=== PATIENT | female | born 1950 | race Caucasian/White ===

== ENCOUNTER 2018-04-20 09:58 | Outpatient (CLI) | payer MEDICARE, OTHER ==
--- NOTE | 2018-04-20 12:23 | BD ---
BONE DENSITOMETRY USING DEXA: Date: 04/20/18 HISTORY: Postmenopausal screening for osteoporosis. FINDINGS: Lumbar Spine: BMD (g/cm2) L1 0.811 T-Score: -1.6 Z-Score: 0.1 L2 0.829 T-Score: -1.8 Z-Score: 0.2 L3 0.860 T-Score: -2.0 Z-Score: 0.0 L4 0.845 T-Score: -2.0 Z-Score: 0.2 L1-L4 0.837 T-Score: -1.9 Z-Score: 0.1 Femoral Neck: 0.833 T-Score: -0.1 Z-Score: 1.6 Total Femur: 0.960 T-Score: 0.1 Z-Score: 1.6 The 10 year fracture risk for a major osteoporotic fracture is 7% and for a hip fracture is 0.3%. IMPRESSION: Osteopenia. POS: BRENDAN
== END 2018-04-20 09:59 | disposition home or self-care (01) ==
LOC: BICMAMMO 09:58
PROVIDERS: ATTEND Family Medicine
DX: Z12.31 Encounter for screening mammogram for malignant neoplasm of breast (principal); M85.88 Other specified disorders of bone density and structure, other site
CPT/HCPCS: 77063; 77067; 77080

== ENCOUNTER 2019-04-27 09:26 | Outpatient (CLI) | payer MEDICARE, OTHER ==
--- NOTE | 2019-04-27 11:24 | MMO ---
Bilateral MAMMO Bilat Screen [facility]. CLINICAL HISTORY: Patient is 68 years old and is seen for screening. The patient has no family history of breast cancer. The patient has no personal history of cancer. VIEWS: The views performed were: bilateral craniocaudal with tomosynthesis and bilateral mediolateral oblique with tomosynthesis. FILMS COMPARED: The present examination has been compared to prior imaging studies performed at [facility] on 08/14/2015 and 04/20/2018, and at [facility] on 09/01/2014 and 09/06/2014. This study has been interpreted with the assistance of computer-aided detection. MAMMOGRAM FINDINGS: The breasts are heterogeneously dense, which could obscure a lesion on mammography. There are no suspicious masses, suspicious calcifications, or new areas of architectural distortion. IMPRESSION: THERE IS NO MAMMOGRAPHIC EVIDENCE OF MALIGNANCY. A ROUTINE FOLLOW-UP MAMMOGRAM IN 1 YEAR IS RECOMMENDED. THE RESULTS OF THIS EXAM WERE SENT TO THE PATIENT. ACR BI-RADS Category 1 - Negative MAMMOGRAPHY NOTE: 1. A negative mammogram report should not delay a biopsy if a dominant of clinically suspicious mass is present. 2. Approximately 10% to 15% of breast cancers are not detected by mammography. 3. Adenosis and dense breasts may obscure an underlying neoplasm. Reported by: ISHAN CHRISTIANSON MD Electonically Signed: [id number]
== END 2019-04-27 09:27 | disposition home or self-care (01) ==
LOC: BICMAMMO 09:26
PROVIDERS: ATTEND Family Medicine
DX: Z12.31 Encounter for screening mammogram for malignant neoplasm of breast (principal)
CPT/HCPCS: 77063; 77067

== ENCOUNTER 2020-05-31 09:07 | Outpatient (CLI) | payer MEDICARE, OTHER ==
--- NOTE | 2020-05-31 10:05 | MMO ---
Bilateral MAMMO Bilat Screen [facility]. CLINICAL HISTORY: Patient is 69 years old and is seen for screening. The patient has no family history of breast cancer. The patient has no personal history of cancer. VIEWS: The views performed were: bilateral craniocaudal with tomosynthesis and bilateral mediolateral oblique with tomosynthesis. FILMS COMPARED: The present examination has been compared to prior imaging studies performed at [facility] on 08/14/2015, 04/20/2018 and 04/27/2019, and at [facility] on 09/06/2014. This study has been interpreted with the assistance of computer-aided detection. MAMMOGRAM FINDINGS: The breasts are heterogeneously dense, which could obscure a lesion on mammography. There is an asymmetry seen in the CC view only seen in the outer region of the left breast. In the right breast, there are no suspicious masses, calcifications or areas of architectural distortion. IMPRESSION: ASYMMETRY IN THE LEFT BREAST REQUIRES ADDITIONAL EVALUATION. RECOMMEND DIAGNOSTIC MAMMOGRAM. ULTRASOUND MAY ALSO PROVE USEFUL AT RECALL. THE RESULTS OF THIS EXAM WERE SENT TO THE PATIENT. ACR BI-RADS Category 0 - Incomplete: Need additional imaging evaluation. [facility] will notify the patient of the need for additional imaging services. MAMMOGRAPHY NOTE: 1. A negative mammogram report should not delay a biopsy if a dominant of clinically suspicious mass is present. 2. Approximately 10% to 15% of breast cancers are not detected by mammography. 3. Adenosis and dense breasts may obscure an underlying neoplasm. Reported by: JOE HEATON MD Electonically Signed: [id number]
== END 2020-05-31 09:08 | disposition home or self-care (01) ==
LOC: BICMAMMO 09:07
PROVIDERS: ATTEND Family Medicine
DX: Z12.31 Encounter for screening mammogram for malignant neoplasm of breast (principal); N64.89 Other specified disorders of breast
CPT/HCPCS: 77063; 77067

== ENCOUNTER 2020-06-01 10:16 | Outpatient (CLI) | payer MEDICARE, OTHER | END 2020-06-01 10:17 | disposition home or self-care (01) | LOC: BICMAMMO 10:16 | PROVIDERS: ATTEND Family Medicine | DX: R92.8 Other abnormal and inconclusive findings on diagnostic imaging of breast (principal) | CPT/HCPCS: 76642; 77065; G0279 ==

== ENCOUNTER → 2020-06-08 | Day surgery (SDC) | payer MEDICARE, OTHER | LOC: BICULT 12:32 | PROVIDERS: ATTEND Family Medicine | PROC: 0H9U0ZX Drainage of Left Breast, Open Approach, Diagnostic (ICD-10-PCS; principal; 2020-06-08) | DX: C50.412 Malignant neoplasm of upper-outer quadrant of left female breast (principal); Z17.0 Estrogen receptor positive status [ER+] | CPT/HCPCS: 19083; 88305; 88341; 88342 ==

== ENCOUNTER 2020-06-21 11:28 | Outpatient (CLI) | payer MEDICARE, OTHER ==
[2020-06-21 12:59] LABS: #Basophils 0.1 10x3/uL (0.0-0.2); #Eosinphils 0.3 10x3/uL (0.0-0.5); #Monocytes 0.6 10x3/uL (0.0-1.1); #Neutrophils 4.3 10x3/uL (1.5-8.4); %Basophils 1.2 % (0.0-2.0); %Eosinophils 3.9 % (0.0-6.0); %Monocytes 7.3 % (0.0-10.0); %Neutrophils 57.3 % (40.0-75.0); Hemoglobin 12.4 g/dL (12.0-15.5); Mean Corpuscular HGB CONC 31.1 g/dL (32.0-36.0); Mean Corpuscular Hemoglobin 21.2 pg (27.0-33.0); Mean Corpuscular Volume 68.3 fl (81.6-98.3); Mean Platelet Volume 11.8 fl (7.4-10.4); Platelet Count 278 10x3/uL (150-450); RBC Distribution Width 15.2 % (11.5-14.5); Red Blood Cell (RBC) Count 5.84 10x6/uL (3.90-5.03); White Blood Cell (WBC) Count 7.5 10x3/uL (3.5-10.5)
[2020-06-21 13:03] LABS: Anion Gap 14 mmol/L (10-20); BUN (Urea Nitrogen) 12 mg/dL (9.8-20.1); Calc. Creatinine Clearance 0 mL/min (70-130); Calcium 10.1 mg/dL (7.8-10.44); Carbon Dioxide 27 mmol/L (23-31); Chloride 103 mmol/L (98-107); Glucose 89 mg/dL (80-115); Potassium 4.7 mmol/L (3.5-5.1); Sodium 139 mmol/L (136-145)
[2020-06-21 13:27] LABS: Platelet Morphology Comment Appears Adequate
[2020-06-21 13:31] LABS: Elliptocytes SLIGHT = 2-5 cells (100X) (0-1/hpf); Hypochromia SLIGHT = 6-15 cells (100X) (0-5/hpf); Macrocytosis SLIGHT = 6-15 cells (100X) (0-5/hpf); Microcytosis SLIGHT = 6-15 cells (100X) (0-5/hpf); Stomatocytes SLIGHT = 2-5 cells (100X) (0-1/hpf); Target Cells SLIGHT = 2-5 cells (100X) (0-1/hpf)
[2020-06-21 19:46] LABS: SARS-CoV-2 PCR by NAA Not Detected (NotDetected)
== END 2020-06-21 11:29 | disposition home or self-care (01) ==
LOC: LABBT 11:28
PROVIDERS: ATTEND Surgery
DX: Z01.812 Encounter for preprocedural laboratory examination (principal); C50.912 Malignant neoplasm of unspecified site of left female breast; Z20.822 Contact with and (suspected) exposure to COVID-19
CPT/HCPCS: 80048; 85025; U0003; U0005; 87635

== ENCOUNTER 2020-06-26 07:00 | Day surgery (SDC) | payer MEDICARE, OTHER ==
[2020-06-23 10:19] VITALS: BMI 27.5
[2020-06-26] MEDS ORDERED: Fentanyl 100 MCG/2 ML VIAL ONE ×4 (12:13→15:58)
[2020-06-26] MEDS ORDERED: XYLOCAINE 2%-EPI 1:100,000 20 ML VIAL ONE (13:57)
[2020-06-26] MEDS ORDERED: Bupivacaine 0.25% HCL 30 ML VIAL ONE (13:57)
[2020-06-26] MEDS ORDERED: Methylene Blue 50 MG/10 ML AMPUL ONE (13:57)
[2020-06-26] MEDS ORDERED: Dexamethasone 20 MG/5 ML VIAL ONE (14:18)
[2020-06-26] MEDS ORDERED: Ondansetron PF 4 MG/2 ML Vial ONE (14:18)
[2020-06-26] MEDS ORDERED: PROPOFOL 200 MG/20 ML VIAL ONE (14:18)
[2020-06-26] MEDS ORDERED: HYDROcodone/Acetaminophen 5/325 mg Tablet ONE (16:52)
== END 2020-06-26 17:30 | disposition home or self-care (01) ==
LOC: SDC 07:00
PROVIDERS: ATTEND Surgery
PROC: 0HBU0ZZ Excision of Left Breast, Open Approach (ICD-10-PCS; principal; 2020-06-26)
PROC: 07B60ZX Excision of Left Axillary Lymphatic, Open Approach, Diagnostic (ICD-10-PCS; 2020-06-26)
DX: C50.412 Malignant neoplasm of upper-outer quadrant of left female breast (principal); E03.9 Hypothyroidism, unspecified; E78.00 Pure hypercholesterolemia, unspecified; M85.80 Other specified disorders of bone density and structure, unspecified site; Z17.0 Estrogen receptor positive status [ER+]; Z79.899 Other long term (current) drug therapy; Z88.5 Allergy status to narcotic agent
CPT/HCPCS: 19281; 19301; 38525; 38900; 76098; 78195; 88305; 88307; 88342; A9541; Q9968; J0690; J1100; J2405; J2704; J3010; S0020

== ENCOUNTER 2020-09-12 12:55 | Outpatient (CLI) | payer MEDICARE, OTHER | END 2020-09-12 12:56 | disposition home or self-care (01) | LOC: BICMAMMO 12:55 | PROVIDERS: ATTEND Internal Medicine Hematology & Oncology | DX: M85.88 Other specified disorders of bone density and structure, other site (principal) | CPT/HCPCS: 77080 ==

== ENCOUNTER 2020-12-28 14:30 | Outpatient (CLI) | payer MEDICARE, OTHER | END 2020-12-28 14:31 | disposition home or self-care (01) | LOC: BICRAD 14:30 | PROVIDERS: ATTEND Nurse Practitioner Family | DX: S29.9XXA Unspecified injury of thorax, initial encounter (principal) | CPT/HCPCS: 71046 ==

== ENCOUNTER 2021-04-23 10:01 | Outpatient (CLI) | payer MEDICARE | END 2021-04-23 10:02 | disposition home or self-care (01) | LOC: BICULT 10:01 | PROVIDERS: ATTEND Family Medicine | DX: R74.8 Abnormal levels of other serum enzymes (principal); N28.1 Cyst of kidney, acquired; R94.5 Abnormal results of liver function studies; Z79.899 Other long term (current) drug therapy | CPT/HCPCS: 36415; 76700; 80074; 80076 ==

== ENCOUNTER 2021-10-15 10:15 | Outpatient (CLI) | payer MEDICARE | END 2021-10-15 10:16 | disposition home or self-care (01) | LOC: BICMAMMO 10:15 | PROVIDERS: ATTEND Internal Medicine Hematology & Oncology | DX: M85.89 Other specified disorders of bone density and structure, multiple sites (principal) | CPT/HCPCS: 77080 ==

== ENCOUNTER 2021-11-13 09:48 | Outpatient (CLI) | payer MEDICARE | END 2021-11-13 09:49 | disposition home or self-care (01) | LOC: BICRAD 09:48 | PROVIDERS: ATTEND Family Medicine | DX: J18.9 Pneumonia, unspecified organism (principal) | CPT/HCPCS: 71046 ==

== ENCOUNTER 2022-06-17 09:27 | Outpatient (CLI) | payer MEDICARE | END 2022-06-17 09:28 | disposition home or self-care (01) | LOC: BICMAMMO 09:27 | PROVIDERS: ATTEND Family Medicine | DX: C50.912 Malignant neoplasm of unspecified site of left female breast (principal) | CPT/HCPCS: 77066; G0279 ==

== ENCOUNTER 2025-01-27 10:02 | Outpatient (CLI) | payer OTHER | END 2025-01-27 10:03 | disposition home or self-care (01) | LOC: BICMAMMO 10:02 | PROVIDERS: ATTEND Internal Medicine Hematology & Oncology | DX: C50.412 Malignant neoplasm of upper-outer quadrant of left female breast (principal); Z79.818 Long term (current) use of other agents affecting estrogen receptors and estrogen levels; M85.89 Other specified disorders of bone density and structure, multiple sites | CPT/HCPCS: 77080 ==